=== PATIENT | female | born 1995 | race Caucasian/White ===

== ENCOUNTER → 2024-09-04 08:27 | Outpatient (REF) | payer BC, SELFPAY | LOC: RAD 08:27 | PROVIDERS: ATTENDING PHYSICIAN Physician Assistant | DX: M54.6 Pain in thoracic spine (principal); M54.50 Low back pain, unspecified | CPT/HCPCS: 72072; 72110 ==

== ENCOUNTER → 2024-11-05 07:47 | Outpatient (REF) | payer BC, SELFPAY | LOC: HWRAD 07:47 | PROVIDERS: ATTENDING PHYSICIAN Physician Assistant | DX: N39.0 Urinary tract infection, site not specified (principal); R10.2 Pelvic and perineal pain | CPT/HCPCS: 76770 ==

== ENCOUNTER → 2025-01-03 08:32 | Outpatient (REF) | payer BC, SELFPAY | LOC: MRI 3T 08:32 | PROVIDERS: ATTENDING PHYSICIAN Physician Assistant | DX: M54.6 Pain in thoracic spine (principal) | CPT/HCPCS: 72146; 72148 ==